=== PATIENT | female | born 1950 | race Caucasian/White ===

== ENCOUNTER 2024-01-04 00:57 | Emergency (ER) | payer MEDICARE, SELFPAY ==
[2024-01-04] VITALS (12 sets, daily range): BP systolic 109–116; BP diastolic 41–60; PULSE 73–79; RESP 13–24; TEMP 36.3; O2SAT 98–100
--- NOTE | ~2024-01-04 | XR_ITS ---
Portable chest x-ray Comparison: None Clinical History: Chest pain Findings: Calcified right upper lobe granuloma noted. Lungs are otherwise clear. Cardiomediastinal silhouette is stable. Right shoulder arthroplasty noted. High riding left humeral head present with p ossible fracture deformity of the distal left clavicle. Impression: No acute pulmonary abnormality. High riding humeral head with possible fracture deformity the distal left clavicle. Consider dedicate d imaging as indicated. Correlate with patient's symptomatology. Reviewed, dictated and finalized at location . Impression: No acute pulmonary abnormality. High riding humeral head with possible fracture deformity the distal left clavi rafal. Consider dedicated imaging as indicated. Correlate with patient's symptoma tology.
--- NOTE | 2024-01-04 00:59 | ED.CHESTPAIN ---
HPI - Chest Pain General Chief Complaint: Chest Pain Stated Complaint: chest pain Time Seen by Provider: 01/04/24 00:59 Source: patient Mode of arrival: ambulatory Limitations: no limitations History of Present Illness HPI narrative: 73-year-old female with a history of hypertension, rheumatoid arthritis, fibromyalgia had a fall 4 days ago and landed on left anterior chest wall. Subsequently she has had ongoing left-sided chest pain. Today evening left-sided chest pain got worse and radiated to her left jaw and left shoulder. She was unable to sleep. She presents to the ED with -- left anterior chest wall pain rated as 7/10. Pain is unprovoked. It is worse on deep breathing and movement. No nausea/ vomiting. No diaphoresis. No shortness of breath. -- When she fell 4 days ago the patient had left side of the head. No loss of consciousness noted. No bruising noted. No headaches. No focal neuro deficits noted. -- bruise left forearm Patient had a negative stress test many years ago. MD complaint: chest pain Onset (ago): day(s) ( Four days) Timing of current episode: constant Prior episodes: Yes Onset: during rest and during exertion Pain location: left chest Pain radiation: neck and left shoulder Severity: moderate Pain scale (0-10): 7 Quality: aching Relieving factors: nothing Exacerbating factors: inspiration and movement Treatment prior to arrival: none Risk Factors Coronary artery disease risk factors: hypertension Related Data On Oral Contraceptives: No Home Medications Medication Instructions Recorded Confirmed Alive Women's Multivitamin 1 pill PO DAILY 01/04/24 01/04/24 Calcium + Vitamin D 1 pill PO DAILY 01/04/24 01/04/24 Remicade See Rx Instructions .Route .COMPLEX 01/04/24 01/04/24 amlodipine 5 mg tablet (Norvasc) 5 mg PO DAILY 01/04/24 01/04/24 duloxetine 30 mg capsule,delayed 90 mg PO ONCE 01/04/24 01/04/24 release (Cymbalta) folic acid 1 mg tablet 1 mg PO DAILY 01/04/24 01/04/24 gabapentin 300 mg capsule 300 mg PO QAM 01/04/24 01/04/24 (Neurontin) gabapentin 300 mg capsule 600 mg PO HS 01/04/24 01/04/24 (Neurontin) hydroxychloroquine 200 mg tablet 200 mg PO DAILY 01/04/24 01/04/24 (Plaquenil) losartan 100 mg tablet (Cozaar) 100 mg PO DAILY 01/04/24 01/04/24 meloxicam 15 mg tablet 15 mg PO DAILY 01/04/24 01/04/24 methotrexate sodium 2.5 mg tablet 2.5 mg PO WEEKLY 01/04/24 01/04/24 pantoprazole 20 mg tablet,delayed 20 mg PO DAILY 01/04/24 01/04/24 release (Protonix) Allergies Allergy/AdvReac Type Severity Reaction Status Date / Time cephalexin [From Keflex] Allergy Hives Verified 01/04/24 01:21 levofloxacin [From Levaquin] Allergy Hives Verified 01/04/24 01:21 Penicillins Allergy Hives Verified 01/04/24 01:21 Review of Systems Review of Systems: All systems reviewed & are unremarkable except as noted in HPI and below Constitutional: Constitutional: Reports as per HPI and Reports no additional constitutional complaints Eyes: Eyes: Reports as per HPI and Reports no additional eye complaints ENT: Reports system reviewed and no additional complaints, except as documented and Reports as per HPI Cardiovascular: Cardiovascular: Reports as per HPI, Reports no additional cardiovascular complaints and Reports chest pain Comments: left chest wall pain Respiratory: Respiratory: Reports as per HPI and Reports no additional respiratory complaints Gastrointestinal: Gastrointestinal: Reports as per HPI and Reports no additional gastrointestinal complaints Genitourinary: Genitourinary: Reports no additional female genitourinary complaints and Reports as per HPI Musculoskeletal: Musculoskeletal: Reports no additional musculoskeletal complaints and Reports as per HPI Integumentary/Breasts: Skin/Breast: Reports system reviewed and no additional complaints, except as docu and Reports as per HPI Neurologic: Reports system reviewed and no additional complaints, except as documented and
--- NOTE | 2024-01-04 01:07 | ECG_ITS ---
Test Date: 2024-01-04 01:00:00 Measurements Intervals [place] Rate: 80 P: 30 [place]: 158 QRS: -9 QRSD: 85 T: 12 QT: 358 QTc: 414 Interpretive Statements SINUS RHYTHM No previous ECG available for comparison Electronically Signed On 01-04-2024 10:06:49 CDT by Karen Butt M.D.
[2024-01-04 01:25] LABS: Basophils Absolute Auto 0.05 K/mm3 (0.00-0.10); Basophils Percent Auto 0.9 % (0.0-1.0); Eosinophils Absolute Auto 0.29 K/mm3 (0.02-0.50); Hematocrit 27.9 % (35.0-42.0); Hemoglobin 8.8 g/dL (11.7-13.8); Immature Granulocyte Absolute 0.02 K/mm3 (0.00-0.00); Immature Granulocyte Percent A 0.3 % (0.0-0.0); Lymphocytes Absolute Auto 1.68 K/mm3 (1.10-4.50); Lymphocytes Percent Auto 29.1 % (18.0-42.0); Mean Corpuscular HGB Conc 31.5 g/dL (32-36); Mean Corpuscular Volume 98.2 fL (78.0-102.0); Mean Platelet Volume 9.5 fl (9.2-11.8); Monocytes Absolute Auto 0.78 K/mm3 (0.10-0.90); Monocytes Percent Auto 13.5 % (2.0-11.0); Neutrophils Absolute Auto 2.95 K/mm3 (1.70-7.20); Neutrophils Percent Auto 51.2 % (50.0-70.0); Platelet Count Result 285 K/mm3 (150-420); Red Blood Count 2.84 M/mm3 (4.20-5.40); Red Cell Distribution Width 15.1 % (11.6-14.4); White Blood Count 5.8 K/mm3 (4.8-10.8)
[2024-01-04] MEDS: KETOROLAC 30 MG/ML VIAL (*BKC) IM (01:39)
[2024-01-04 01:40] LABS: Partial Thromboplastin Time 26.8 Sec (23.9-30.70); Prothrombin Time 10.6 Seconds (9.50-12.1)
--- NOTE | 2024-01-04 01:43 | PC.NURSE ---
patient awake and alert, resting on stretcher without distress, ex at bedside. vss. patient medicated per order, see MAR. patient awaiting results of labs and imaging, lights dimmed for comfort and patient denies further needs. call light within reach.
[2024-01-04 01:44] LABS: Alanine Aminotransferase 24 U/L (14-59); Alkaline Phosphatase 86 U/L (46-116); Anion Gap 8 mmol/L (4-12); Aspartate Amino Transferase 34 U/L (15-37); Bilirubin,Total 0.3 mg/dL (0.00-1.00); Blood Urea Nitrogen 24 mg/dL (7-18); Calcium 8.8 mg/dL (8.5-10.1); Carbon Dioxide 27 mmol/L (21-32); Chloride 104 mmol/L (98-108); Estimated CRCL calculation 32 ml/min; Estimated Glomerular Filt Rate 40; Glucose 95 mg/dL (70-99); Osmolality Calculated 292 mOsm/kg (285-295); Potassium 4.9 mmol/L (3.5-5.1); Sodium 139 mmol/L (136-145); Total Protein 6.6 g/dL (6.4-8.2); Troponin I 7.3 ng/L (0.00-60.4)
--- NOTE | 2024-01-04 01:54 | PC.NURSE ---
ED physician Dr. Chirinos at patient bedside at this time speaking to patient regarding results and plan of care.
== END 2024-01-04 02:19 | disposition home or self-care (01) ==
PROVIDERS: Emergency Provider Internal Medicine Critical Care Medicine
DX: R07.89 Other chest pain (principal); N28.9 Disorder of kidney and ureter, unspecified; I10 Essential (primary) hypertension; M06.9 Rheumatoid arthritis, unspecified; Z79.899 Other long term (current) drug therapy; Z79.1 Long term (current) use of non-steroidal anti-inflammatories (NSAID)
CPT/HCPCS: 36415; 71045; 80053; 84484; 85025; 85610; 85730; 93005; 96372; 99284; J1885